=== PATIENT | male | born 1980 | race Caucasian/White ===

== ENCOUNTER 2020-08-18 01:48 | Outpatient (CLI) | payer OTHER, SELFPAY ==
[2020-08-21 15:11] LABS: HIV 1 RNA Qualitative Undetected copies/mL (Undetected)
== END 2020-08-18 02:08 ==
PROVIDERS: PCP Internal Medicine Infectious Disease; Visit Provider Internal Medicine Infectious Disease
DX: B20 Human immunodeficiency virus [HIV] disease (principal)
CPT/HCPCS: 36415; 87536